=== PATIENT | female | born 1960 | race Two or more races ===

== ENCOUNTER 2017-11-25 07:22 | Outpatient (CLI) | payer OTHER ==
[~2017-11-25 07:22] MED LIST: COZAAR100 MG PO; CRESTOR10 MG PO; SYNTHROID100 MCG PO
== END 2017-11-25 07:36 | disposition home or self-care (01) ==
LOC: NUCLEAR 07:22
DX: I11.9 Hypertensive heart disease without heart failure (principal); I25.10 Atherosclerotic heart disease of native coronary artery without angina pectoris
CPT/HCPCS: A9500; 78452; 93017

== ENCOUNTER 2020-01-18 11:35 | Emergency (ER) | payer OTHER ==
[~2020-01-18] VITALS: Ht 162.6 cm; Wt 81.6 kg
== END 2020-01-18 18:07 | disposition home or self-care (01) ==
LOC: ER 11:35
DX: I16.0 Hypertensive urgency (principal); I10 Essential (primary) hypertension; B96.0 Mycoplasma pneumoniae [M. pneumoniae] as the cause of diseases classified elsewhere

== ENCOUNTER 2022-11-19 10:38 | Outpatient (CLI) | payer OTHER | END 2022-11-19 10:46 | disposition home or self-care (01) | LOC: NUCLEAR 10:38 | PROVIDERS: ATTEND Internal Medicine Geriatric Medicine | DX: M81.0 Age-related osteoporosis without current pathological fracture (principal); M15.0 Primary generalized (osteo)arthritis; I11.9 Hypertensive heart disease without heart failure; I63.9 Cerebral infarction, unspecified ==

== ENCOUNTER 2022-11-22 09:29 | Outpatient (CLI) | payer OTHER | END 2022-11-22 09:53 | disposition home or self-care (01) | LOC: MAMO-SONO 09:29 | PROVIDERS: ATTEND Internal Medicine Geriatric Medicine | DX: Z12.31 Encounter for screening mammogram for malignant neoplasm of breast (principal); C50.919 Malignant neoplasm of unspecified site of unspecified female breast; N63.0 Unspecified lump in unspecified breast; N64.4 Mastodynia; N60.11 Diffuse cystic mastopathy of right breast; N60.12 Diffuse cystic mastopathy of left breast ==

== ENCOUNTER 2023-12-06 09:43 | Outpatient (CLI) | payer OTHER | END 2023-12-06 09:54 | disposition home or self-care (01) | LOC: RAD 09:43 | PROVIDERS: ATTEND Specialist | DX: Z12.39 Encounter for other screening for malignant neoplasm of breast (principal); N60.39 Fibrosclerosis of unspecified breast; J45.909 Unspecified asthma, uncomplicated; E03.9 Hypothyroidism, unspecified ==

== ENCOUNTER 2024-02-22 10:27 | Emergency (ER) | payer OTHER ==
[~2024-02-22] VITALS: Ht 162.6 cm; Wt 74.8 kg
[~2024-02-22 10:27] MED LIST changes: +CIPRO500 MG PO; +MEDI-MECLIZINE25 MG PO
[2024-02-22] MEDS ORDERED: AMLODIPINE-OLM1 EACH PO (10:42)
[2024-02-22] MEDS ORDERED: CRESTOR40 MG PO (10:42)
[2024-02-22] MEDS ORDERED: FLECAINIDE ACET50 MG PO (10:43)
[2024-02-22] MEDS ORDERED: TOPROL XL25 M1 PO (10:43)
[2024-02-22] MEDS ORDERED: HYDRODIURIL12.5 MG PO (10:43)
[2024-02-22] MEDS ORDERED: FARXIGA5 MG PO (10:44)
[2024-02-22 11:33] LABS: HEMATOCRIT 37.1 % (36.0-45.00); HEMOGLOBIN 12.9 g/dL (12.0-15.00); MEAN CELL VOLUME 97.4 fL (80.00-100.00); MEAN CORPUSCULAR HEMOGLOBIN 33.8 pg (27.00-32.0); MEAN CORPUSCULAR HGB CONC 34.7 g/dl (32.0-36.0); PLATELET COUNT 255 K/uL (150-450); RED BLOOD COUNT 3.81 M/uL (4.00-6.00); RED CELL DISTRIBUTION WIDTH 13.7 % (11.5-14.5)
[2024-02-22 11:46] LABS: PH,URINE 5.5 (5.0-8.0); URINE APPEARANCE Clear; URINE BILIRRUBIN Negative (NEGATIVE); URINE BLOOD Trace; URINE COLOR Yellow; URINE KETONE Trace (NEGATIVE); URINE LEUKOCYTE Trace; URINE NITRATE Negative
[2024-02-22 11:47] LABS: URINE BACTERIA 201.5 uL (0.0-1933); URINE CAST 1.86 uL (0.0-1.40); URINE EPITHELIAL CELLS 22.4 uL (0.0-38.8); URINE RBC 7.1 uL (0.0-20.8); URINE WBC 109.1 uL (0.0-23.2)
[2024-02-22 11:57] LABS: ALBUMIN 3.8 gm/dL (3.4-5.0); BILIRUBIN TOTAL 0.54 mg/dL (0.3-1.2); CALCIUM 9.8 mg/dL (8.5-10.1); CREATININE SERUM 1.95 mg/dL (0.55-1.02); GFR 25.75; GLOBULINA 4.1 G/DL (2.4-3.5); POTASSIUM 3.68 mEq/L (3.5-5.1); TOTAL PROTEIN 7.9 gm/dL (6.4-8.2)
[2024-02-22 12:08] LABS: URINE GLUCOSE >=1000 MG/DL (NEGATIVE); URINE PROTEIN 100 (NEGATIVE)
[2024-02-22] MEDS ORDERED: 0.9 % SODIUM CHLORIDE 1,000 ML IV SCH (12:30)
== END 2024-02-22 19:56 | disposition home or self-care (01) ==
LOC: ER 10:28
PROVIDERS: General Practice
DX: R53.1 Weakness (principal); I10 Essential (primary) hypertension; E03.9 Hypothyroidism, unspecified

== ENCOUNTER 2024-03-29 07:58 | Outpatient (CLI) | payer OTHER ==
[~2024-03-29 07:58] MED LIST changes: +AMLODIPINE-OLM1 EACH PO; +CRESTOR40 MG PO; +FARXIGA5 MG PO; +FLECAINIDE ACET50 MG PO; +HYDRODIURIL12.5 MG PO; +TOPROL XL25 M1 PO
== END 2024-03-29 07:59 | disposition home or self-care (01) ==
LOC: NUCLEAR 07:58
PROVIDERS: ATTEND Specialist
DX: D35.1 Benign neoplasm of parathyroid gland (principal)
CPT/HCPCS: 78071; A9500

== ENCOUNTER 2024-04-05 12:10 | Emergency (ER) | payer OTHER ==
[~2024-04-05] VITALS: Ht 162.6 cm; Wt 77.1 kg
[2024-04-05 13:08] LABS: HEMATOCRIT 34.4 % (36.0-45.00); MEAN CORPUSCULAR HEMOGLOBIN 34.6 pg (27.00-32.0); PLATELET COUNT 290 K/uL (150-450); RED BLOOD COUNT 3.47 M/uL (4.00-6.00); RED CELL DISTRIBUTION WIDTH 14.2 % (11.5-14.5)
[2024-04-05 13:28] LABS: CALCIUM 9.5 mg/dL (8.5-10.1); CREATININE SERUM 1.23 mg/dL (0.55-1.02); GFR 43.82; POTASSIUM 4.37 mEq/L (3.5-5.1)
[2024-04-05 13:29] LABS: PH,URINE 5.5 (5.0-8.0); URINE APPEARANCE Clear; URINE BILIRRUBIN Small (NEGATIVE); URINE BLOOD Negative; URINE COLOR Dark Yellow; URINE GLUCOSE Negative (NEGATIVE); URINE LEUKOCYTE Trace; URINE NITRATE Negative; URINE PROTEIN 30 (NEGATIVE)
[2024-04-05 13:32] LABS: URINE BACTERIA 27.7 uL (0.0-1933); URINE EPITHELIAL CELLS 2.7 uL (0.0-38.8); URINE WBC 15.3 uL (0.0-23.2)
[2024-04-05] MEDS ORDERED: FAMOTIDINE/PF 20 MG in 0.9 % SODIUM CHLORIDE 8 ML IV PUSH STA (16:49)
[2024-04-05] MEDS ORDERED: PROTONIX40 MG PO (16:53)
[2024-04-05] MEDS ORDERED: LEVSIN/SL0.125 MG SL (16:53)
[2024-04-05] MEDS ORDERED: METRONIDAZOLE500 MG PO (16:53)
[2024-04-05] MEDS ORDERED: CIPRO500 MG PO (16:53)
[2024-04-05] MEDS ORDERED: PIPERACILLIN/TAZOBACTAM SODIUM 3.375 GM VIAL IV ONE (17:00)
[2024-04-05] MEDS ORDERED: HYOSCYAMINE SULFATE 0.125 MG TAB.SUBL SL ONE (17:00)
== END 2024-04-05 18:50 | disposition home or self-care (01) ==
LOC: ER 12:11
PROVIDERS: Emergency Medicine
DX: K57.32 Diverticulitis of large intestine without perforation or abscess without bleeding (principal); R10.9 Unspecified abdominal pain; K80.20 Calculus of gallbladder without cholecystitis without obstruction; E78.00 Pure hypercholesterolemia, unspecified; E03.8 Other specified hypothyroidism; I10 Essential (primary) hypertension
CPT/HCPCS: 36415; 74177; 96365; 99284; J2543; Q9965

== ENCOUNTER 2024-10-15 16:51 | Inpatient (IN) | payer OTHER ==
[~2024-10-15] VITALS: Ht 162.6 cm; Wt 126.1 kg
[~2024-10-15 16:51] MED LIST changes: +LEVSIN/SL0.125 MG SL; +METRONIDAZOLE500 MG PO; +PROTONIX40 MG PO
--- NOTE | 2024-10-15 17:30 | NUR ---
SE RECIBE PTE FEMENINA ALERTA Y ORIENTADA X3 REFIERE VENIR POR RESULTADO DE HEMOGLOBINA EN 6.7, PTE ENVIADA POR DR.MARCUS MOON. AL MOMENTO DE TRIAGE PTE NO REFIERE SINTOMAS. SE JAMES S/V.
[2024-10-15] MEDS ORDERED: 0.9 % SODIUM CHLORIDE 500 ML IV ONE (18:00)
[2024-10-15] MEDS ORDERED: PANTOPRAZOLE SODIUM 40 MG/VIAL VIAL IV ONE (18:15)
--- NOTE | 2024-10-15 18:58 | NUR ---
SE EDUCA PACIENTE SOBRE EL [place] MEDICO Y ESTA REFIERE ENTENDER. SE CANALIZA EN BRAZO DERECHO # 18 Y MANO DERECHA # 20 PATENTE Y TONNY DE DOLOR SE ADMINITRA MEDICAMENTOS MANUEL ORDEN MEDICA. SE JAMES MUESTRAS DE LABORATORIOS Y SE ENVIAN. SE ENTREGA ENVASE DE U/A Y FECAL. PENDIENTE A PLACA. SE REALIZA EKG
[2024-10-15 19:13] LABS: MEAN CELL VOLUME 100.3 fL (80.00-100.00); MEAN CORPUSCULAR HGB CONC 33.6 g/dl (32.0-36.0); PLATELET COUNT 341 K/uL (150-450); RED BLOOD COUNT 2.19 M/uL (4.00-6.00); RED CELL DISTRIBUTION WIDTH 15.2 % (11.5-14.5)
[2024-10-15 19:46] LABS: HEMATOCRIT 21.9 % (36.0-45.00); HEMOGLOBIN 7.4 g/dL (12.0-15.00); MEAN CORPUSCULAR HEMOGLOBIN 33.7 pg (27.00-32.0)
[2024-10-15 19:51] LABS: INR 1.05; PARTIAL THROMBOPLASTIN TIME 23.2 SECONDS (22.0-34.0); PROTHROMBIN TIME 11.4 SECONDS (9.0-11.5)
[2024-10-15 20:06] LABS: ALBUMIN 3.5 gm/dL (3.4-5.0); BILIRUBIN TOTAL 0.34 mg/dL (0.3-1.2); CREATININE SERUM 1.2 mg/dL (0.55-1.02); GFR 44.95; GLOBULINA 3.5 G/DL (2.4-3.5); POTASSIUM 3.55 mEq/L (3.5-5.1)
[2024-10-15] MEDS ORDERED: FUROsemide 20 MG/2 ML VIAL IV SCH (20:30)
--- NOTE | 2024-10-15 20:43 | NUR ---
SE REQUISAN 2 UNIDADES DE PRBC Y SE FIRMA CONSENTIMIENTO DE TRANSFUCION
[2024-10-15] MEDS ORDERED: 0.9 % SODIUM CHLORIDE 1,000 ML IV SCH (21:00)
[2024-10-15 23:26] VITALS: BP 152/91; O2SAT 99
[2024-10-16] MEDS ORDERED: LEVOTHYROXINE SODIUM 88 MCG TABLET PO SCH (06:00)
[2024-10-16 06:46] VITALS: BP 122/63; O2SAT 97
[2024-10-16] MEDS ORDERED: FF) FLECAINIDE ACETATE 50MG TAB PO SCH (09:00)
[2024-10-16] MEDS ORDERED: PANTOPRAZOLE SODIUM 40 MG/VIAL VIAL IV SCH (09:00)
[2024-10-16] MEDS ORDERED: LOSARTAN POTASSIUM 100 MG TABLET PO SCH (09:00)
[2024-10-16] MEDS ORDERED: SOD FERRIC GLUC COMPLX/SUCROSE 62.5 MG in 0.9 % SODIUM CHLORIDE 50 ML IV SCH (09:00)
[2024-10-16] MEDS ORDERED: AMLODIPINE BESYLATE 5 MG TABLET PO SCH (09:00)
[2024-10-16 09:12] VITALS: BP 150/79
[2024-10-16 11:43] LABS: PH,URINE 7.5 (5.0-8.0); URINE APPEARANCE Clear; URINE BILIRRUBIN Negative (NEGATIVE); URINE BLOOD Negative; URINE COLOR Yellow; URINE GLUCOSE Negative (NEGATIVE); URINE KETONE Negative (NEGATIVE); URINE LEUKOCYTE Small; URINE NITRATE Negative; URINE PROTEIN Trace (NEGATIVE)
[2024-10-16 11:59] LABS: URINE BACTERIA 96.6 uL (0.0-1933); URINE EPITHELIAL CELLS 2.6 uL (0.0-38.8)
[2024-10-16 12:00] LABS: URINE RBC 1.1 uL (0.0-20.8)
[2024-10-16] MEDS ORDERED: PANTOPRAZOLE SODIUM 80 MG in 0.9 % SODIUM CHLORIDE 100 ML IV SCH (12:15)
[2024-10-16] MEDS ORDERED: MAGNESIUM SULFATE/D5W 100 ML IV NR (16:30)
[2024-10-16 16:50] VITALS: BP 108/69
[2024-10-16] MEDS ORDERED: PATIENTS OWN MEDICATION (MEDICAMENTO EN PISO) PO SCH ×2 (17:00)
[2024-10-16] MEDS ORDERED: DONEPEZIL HCL 10 MG TABLET PO SCH (17:00)
[2024-10-16] MEDS ORDERED: FF) Escitalopram Oxalate 5MG TABLET PO SCH (17:00)
[2024-10-17 01:56] VITALS: BP 142/92; O2SAT 98
[2024-10-17] MEDS ORDERED: SOD FERRIC GLUC COMPLX/SUCROSE 62.5 MG/5 ML AMPUL IV ONE (08:30)
[2024-10-17] MEDS ORDERED: PATIENTS OWN MEDICATION (MEDICAMENTO EN PISO) PO SCH ×2 (09:00)
[2024-10-17 09:17] LABS: HEMATOCRIT 32.5 % (36.0-45.00); MEAN CELL VOLUME 95.2 fL (80.00-100.00); MEAN CORPUSCULAR HEMOGLOBIN 32.3 pg (27.00-32.0); MEAN CORPUSCULAR HGB CONC 33.9 g/dl (32.0-36.0); PLATELET COUNT 364 K/uL (150-450); RED BLOOD COUNT 3.42 M/uL (4.00-6.00); RED CELL DISTRIBUTION WIDTH 16.4 % (11.5-14.5)
[2024-10-17 09:47] LABS: ALBUMIN 3.6 gm/dL (3.4-5.0); BILIRUBIN TOTAL 0.9 mg/dL (0.3-1.2); CALCIUM 9.3 mg/dL (8.5-10.1); CREATININE SERUM 1.08 mg/dL (0.55-1.02); GFR 50.76; GLOBULINA 3.5 G/DL (2.4-3.5); POTASSIUM 4.38 mEq/L (3.5-5.1); TOTAL PROTEIN 7.1 gm/dL (6.4-8.2)
[2024-10-17 10:10] VITALS: BP 143/87; O2SAT 99
[2024-10-17 17:55] VITALS: BP 161/88
[2024-10-18 04:04] VITALS: BP 165/94
[2024-10-18] MEDS ORDERED: SOD FERRIC GLUC COMPLX/SUCROSE 62.5 MG/5 ML AMPUL IV ONE (08:07)
[2024-10-18 09:34] VITALS: BP 156/88
[2024-10-18] MEDS ORDERED: DIPHENHYDRAMINE HCL 50 MG/ML VIAL 1ML IV NR (12:00)
[2024-10-18] MEDS ORDERED: MIDAZOLAM HCL 2 MG/2 ML VIAL IV ONE (12:00)
[2024-10-18] MEDS ORDERED: fentaNYL CITRATE 50 MCG/ML AMPUL IV PUSH ONE (12:00)
[2024-10-18 18:29] VITALS: BP 158/87
== END 2024-10-18 18:51 | disposition home or self-care (01) | DRG 812 ==
LOC: ER 16:51 → MEDJ 20:58
PROVIDERS: General Practice; ADMIT Specialist; ATTEND Specialist
PROC: 30233N1 Transfusion of Nonautologous Red Blood Cells into Peripheral Vein, Percutaneous Approach (ICD-10-PCS; principal; 2024-10-16)
PROC: 4A12X4Z Monitoring of Cardiac Electrical Activity, External Approach (ICD-10-PCS; 2024-10-17)
PROC: 0DB78ZX Excision of Stomach, Pylorus, Via Natural or Artificial Opening Endoscopic, Diagnostic (ICD-10-PCS; 2024-10-18)
PROC: 0DB68ZX Excision of Stomach, Via Natural or Artificial Opening Endoscopic, Diagnostic (ICD-10-PCS; 2024-10-18)
DX: D64.89 Other specified anemias (principal); K44.9 Diaphragmatic hernia without obstruction or gangrene; I10 Essential (primary) hypertension; G47.33 Obstructive sleep apnea (adult) (pediatric); E03.9 Hypothyroidism, unspecified; Z90.12 Acquired absence of left breast and nipple

== ENCOUNTER 2025-05-01 13:13 | Emergency (ER) | payer OTHER ==
[~2025-05-01] VITALS: Ht 162.6 cm; Wt 76.2 kg
[2025-05-01 17:00] LABS: BASO % 0.7 % (0.1-1.2); EOS # 0.21 (0.04-0.54); EOS % 4.8 % (0.7-7.0); LYMPH # 2.27 (1.18-3.74); LYMPH % 51.5 % (19.3-53.1); MEAN PLATELET VOLUME 11.90 fl (9.4-12.4); MONO # 0.28 (0.24-0.82); MONO % 6.3 % (4.7-12.5); NEUT # 1.61 (1.56-6.13); NEUT % 36.5 % (34.0-71.1); RED CELL DISTRIBUTION WIDTH 13.1 % (11.6-14.4)
[2025-05-01 17:30] LABS: URINE APPEARANCE Clear; URINE BILIRRUBIN Negative (NEGATIVE); URINE BLOOD Negative; URINE COLOR Yellow; URINE GLUCOSE Negative (NEGATIVE); URINE KETONE Trace (NEGATIVE); URINE LEUKOCYTE Small; URINE NITRATE Negative; URINE PROTEIN Trace (NEGATIVE); URINE UROBILINOGEN 0.2 E.U./dl
[2025-05-01 17:34] LABS: URINE BACTERIA 17.9 uL (0.0-1933); URINE EPITHELIAL CELLS 3.3 uL (0.0-38.8); URINE WBC 48.4 uL (0.0-23.2)
[2025-05-01 17:37] LABS: URINE CAST 0.14 uL (0.0-1.40); URINE RBC 1.9 uL (0.0-20.8)
[2025-05-01 17:39] LABS: ALT/SGPT 55.0 U/L (12-78); AST/SGOT 45.0 U/L (15-37); BILIRUBIN TOTAL 0.56 mg/dL (0.3-1.2); BUN CREA RATIO 14.0 (7.0-25.0); CREATININE SERUM 1.18 mg/dL (0.55-1.02); GFR 45.83; GLOBULINA 3.9 G/DL (2.4-3.5); GLUCOSE FASTING 120.0 mg/dL (65-100); OSMOLALITY SERUM 291.0 MOSM/KG (275-295)
== END 2025-05-01 19:37 | disposition home or self-care (01) ==
LOC: ER 13:13
PROVIDERS: General Practice
DX: R07.89 Other chest pain (principal)